=== PATIENT | female | born 1990 | race African-American/Black ===

== ENCOUNTER 2017-09-23 19:34 | Outpatient (CLI) | payer MEDICAID ==
[2017-09-23 20:07] LABS: APPEARANCE,URINE CLEAR; BILIRUBIN,URINE NEGATIVE (NEGATIVE); GLUCOSE, URINE NEGATIVE (NEGATIVE); KETONES,URINE NEGATIVE (NEGATIVE); LEUKOCYTE ESTERASE,URINE TRACE (NEGATIVE); NITRITE,URINE NEGATIVE (NEGATIVE); PROTEIN,URINE NEGATIVE (NEGATIVE); URINE SPECIFIC GRAVITY 1.005; UROBILINOGEN,URINE NEGATIVE mg/dL (<2.0)
[2017-09-23 20:20] LABS: URINE METHADONE SCREEN NEGATIVE; URINE OPIATES LOW NEGATIVE; URINE PHENCYCLIDINE SCREEN NEGATIVE
[2017-09-23 20:37] LABS: URINE BARBITURATES SCREEN UNCONFIRMED POSITIVE
--- NOTE | 2017-09-23 20:55 | L&D Progress Notes ---
PROGRESS NOTES Datetime Report Generated by CPN: 09/23/2017 20:55 PROGRESS NOTE Impression Other: Lower abdominal cramping Procedures- Other: Vaginal exam Plan Other: Anticipate discharge Vital Signs : Reviewed; Within Normal Limits Comment: 27yo @ 26.2 presents with complaints of burning with urination x 2 days and lower abdominal cramping. Pt denies regular contractions, rectal pressure or mucoid vaginal discharge. Pt reports good fm, no vb and no lof. Pts is complicated by postive Iva antibodies. Pt is being monitored for this. Pt was rather uncomfortable when swab was placed in her vagina. VAGINAL EXAM Dilatation: closed Effacement: thick Station: high Contractions: Occaisional MEMBRANES Membranes: Intact FETUS A FHR - Baseline: 140s Monitoring: External US Variability: Moderate 6-25bpm Decelerations: None FHR Comments: Appropriate for 26wks gestation SIGNATURE SIGNATURE: [id number] Signature: with User ID: [email or web address]
== END 2017-09-23 21:29 | disposition home or self-care (01) ==
LOC: LC 19:34
PROVIDERS: ATTEND Obstetrics & Gynecology
PROC: 4A1HXCZ Monitoring of Products of Conception, Cardiac Rate, External Approach (ICD-10-PCS; principal; 2017-09-23)
DX: O47.02 False labor before 37 completed weeks of gestation, second trimester (principal); Z3A.26 26 weeks gestation of pregnancy
CPT/HCPCS: 80307; 81001; 87086; 87210

== ENCOUNTER 2017-11-24 10:40 | Outpatient (CLI) | payer MEDICAID ==
--- NOTE | 2017-11-24 11:20 | Non Stress Test Report ---
Non Stress Test Datetime Report Generated by CPN: 11/24/2017 11:19 DEMOGRAPHIC EGA NST: 35.1 INDICATION Indication for Study: Ordered by Provider Indication for Study (NST) Other: Repeat NST for MONITORING Monitor Explained: Monitor Explained; Test Explained; Patient Verbalized Understanding Time on Monitor: 11/24/2017 10:47 Time off Monitor: 11/24/2017 11:12 NST Duration: 25 NST INTERVENTIONS NST Interventions: PO Hydration Physician Notified NST: Dr. Johnny BABY A: [id number] BABY A Movement : Present Contraction Frequency : none FHR Baseline : 145 Accelerations : 15X15 Decelerations : None Variability : Moderate 6-25bpm NST Review: Meets Criteria for Reactive NST NST Review and Verified By : Chele Mann RN NST Results: Reactive NST REPORT Report Trigger: Send Report
== END 2017-11-24 11:35 | disposition home or self-care (01) ==
LOC: LC 10:40
PROVIDERS: ATTEND Obstetrics & Gynecology
PROC: 4A1HXCZ Monitoring of Products of Conception, Cardiac Rate, External Approach (ICD-10-PCS; principal; 2017-11-24)
DX: Z36.89 Encounter for other specified antenatal screening (principal); Z3A.35 35 weeks gestation of pregnancy
CPT/HCPCS: 59025

== ENCOUNTER 2017-12-07 19:20 | Inpatient (IN) | payer MEDICAID ==
[2017-12-07] MEDS ORDERED: DINOPROSTONE 10 MG VAGINAL INSERT.SR PV PRN (20:56)
[2017-12-07] MEDS ORDERED: RINGERS SOLUTION,LACTATED 300 ML IV ONE (20:56)
[2017-12-07] MEDS ORDERED: MAG HYDROX/AL HYDROX/SIMETH SUSP 30 ML UDCUP PO ONE (21:01)
[2017-12-07] MEDS ORDERED: DINOPROSTONE 10 MG VAGINAL INSERT.SR ONE (21:04)
[2017-12-07] MEDS ORDERED: MAG HYDROX/AL HYDROX/SIMETH SUSP 30 ML UDCUP ONE (21:04)
[2017-12-07 21:12] LABS: APPEARANCE,URINE SLIGHTLY-CLOUDY; BILIRUBIN,URINE NEGATIVE (NEGATIVE); COLOR,URINE YELLOW; GLUCOSE, URINE NEGATIVE (NEGATIVE); KETONES,URINE NEGATIVE (NEGATIVE); LEUKOCYTE ESTERASE,URINE LARGE (NEGATIVE); NITRITE,URINE NEGATIVE (NEGATIVE); PROTEIN,URINE NEGATIVE (NEGATIVE); URINE SPECIFIC GRAVITY 1.003; UROBILINOGEN,URINE NEGATIVE mg/dL (<2.0)
[2017-12-07] MEDS: RINGERS SOLUTION,LACTATED 1,000 ML IV PRN (21:17)
[2017-12-07 21:19] LABS: ABSOLUTE EOSINOPHILS # (AUTO) 0.1 10^3/uL (0.0-0.6); ABSOLUTE LYMPHOCYTES (AUTO) 2.1 10^3/uL (0.5-4.7); ABSOLUTE MONOCYTES (AUTO) 0.7 10^3/uL (0.1-1.4); ABSOLUTE NEUT (AUTO) 5.2 10^3/uL (1.7-8.2); BASOPHILS % (AUTO) 0.3 % (0-2); EOSINOPHILS % (AUTO) 1.5 % (0-6); HEMATOCRIT 33.1 % (36.0-47.0); HEMOGLOBIN 11.3 g/dL (12.0-15.5); LYMPHOCYTES % (AUTO) 25.9 % (13-45); MEAN CORPUSCULAR VOLUME 88 fl (80-97); MONOCYTES % (AUTO) 8.6 % (3-13); PLATELET COUNT 124 10^3/uL (150-450); RED BLOOD COUNT 3.75 10^6/uL (3.72-5.28); RED CELL DISTRIBUTION WIDTH 13.7 % (11.5-14.0); SEGMENTED NEUTROPHILS % (AUTO) 63.7 % (42-78); TOTAL CELLS COUNTED % (AUTO) 100 %; WHITE BLOOD COUNT 8.2 10^3/uL (4.0-10.5)
[2017-12-07 21:31] LABS: URINE AMPHETAMINES SCREEN NEGATIVE; URINE BARBITURATES SCREEN NEGATIVE; URINE BENZODIAZEPINES SCREEN NEGATIVE; URINE COCAINE SCREEN NEGATIVE; URINE MARIJUANA (THC) SCREEN NEGATIVE; URINE METHADONE SCREEN NEGATIVE; URINE PHENCYCLIDINE SCREEN NEGATIVE
[2017-12-08] MEDS ORDERED: PENICILLIN G POTASSIUM 5,000,000 UNIT in DEXTROSE 5%-WATER 100 ML IV ONE (06:32)
[2017-12-08] MEDS ORDERED: NALBUPHINE HCL INJ 10 MG/1 ML AMPULE INJ ONE ×2 (06:56→17:59)
[2017-12-08] MEDS ORDERED: NALBUPHINE HCL INJ 10 MG/1 ML AMPULE ONE ×2 (07:02→18:05)
[2017-12-08] MEDS ORDERED: MISOPROSTOL 0.1 MG TABLET PV ONE (10:25)
[2017-12-08] MEDS ORDERED: MISOPROSTOL 0.1 MG TABLET ONE ×2 (10:30→15:02)
[2017-12-08] MEDS ORDERED: PENICILLIN G POTASSIUM 2,500,000 UNIT in DEXTROSE 5%-WATER 50 ML IV SCH (10:32)
--- NOTE | 2017-12-08 17:55 | L&D Progress Notes ---
PROGRESS NOTES Datetime Report Generated by CPN: 12/08/2017 17:55 PROGRESS NOTE Impression: Normal Progression of Labor; Reassuring Heart Rate Procedures: Sterile Vag Exam Plan: Continue Present Management; Antibiotic Therapy Informed Consent Obtained: Vaginal Delivery Informed Consent Obtained: Vaginal Delivery; Induction of Labor; Risks, Benefits and Alternatives Discussed Vital Signs : Reviewed Comment: feeling more uncomfortable, would like something IV for pain GBS +, start pcn Nubain and phenegran VAGINAL EXAM Dilatation: 3 Dilatation: 0 Effacement: 80 Effacement: 25 Station: -2 Station: -3 Contractions: 2-5 Contractions: irreg MEMBRANES Membranes: Intact Membranes: Intact FETUS A FHR - Baseline: 145 Monitoring: External US Accelerations: 15X15 Decelerations: None FHR Category: Category I FHR Comments: had some variables, has been reactive since Estimated Weight (gm): 2621 Presentation: Vertex SIGNATURE SIGNATURE: [id number] SIGNATURE: [id number];[id number] Assignment: April Turner MD Signature: with User ID: [email or web address] : with User ID: [email or web address]
[2017-12-08] MEDS ORDERED: PROMETHAZINE HCL INJ 25 MG/1 ML VIAL IV ONE (17:58)
[2017-12-08] MEDS ORDERED: PROMETHAZINE HCL INJ 25 MG/1 ML VIAL ONE (18:05)
[2017-12-08] MEDS ORDERED: PENICILLIN G-K 5 MILLION UNIT VIAL ONE ×2 (18:06→21:22)
[2017-12-08] MEDS: RINGERS SOLUTION,LACTATED 1,000 ML IV PRN (18:19)
[2017-12-08] MEDS ORDERED: LIDOCAINE 1% INJ-PF (10 MG/ML) 30 ML SDV ONE (18:37)
[2017-12-08] MEDS ORDERED: MISOPROSTOL 0.2 MG TABLET ONE (18:37)
[2017-12-08] MEDS ORDERED: OXYTOCIN/NORMAL SALINE 0 UNIT/0 ML RTUINJ ONE (18:38)
[2017-12-08] MEDS ORDERED: OXYTOCIN/NORMAL SALINE 20 UNIT/1,000 ML RTUINJ ONE (20:45)
[2017-12-08] MEDS ORDERED: OXYTOCIN/NORMAL SALINE 20 UNIT/1,000 ML RTUINJ IV PRN (20:46)
[2017-12-08] MEDS ORDERED: BUPIVACAINE HCL 0.25 % INJ/PF (2.5 MG/1 ML) 30 ML VIAL ONE (21:49)
[2017-12-08] MEDS ORDERED: EPHEDRINE SULFATE INJ 50 MG/1 ML AMPULE ONE (21:49)
[2017-12-08] MEDS ORDERED: FENTANYL/BUPIVACAINE/NS/PF 200 MCG/100 ML RTUINJ EPI ONE (21:49)
[2017-12-09] MEDS ORDERED: ACETAMINOPHEN WITH CODEINE #3 TABLET PO PRN (01:51)
[2017-12-09] MEDS ORDERED: MAGNESIUM HYDROXIDE SUSP 30 ML UDCUP PO PRN (01:51)
[2017-12-09] MEDS ORDERED: PROMETHAZINE HCL INJ 25 MG/1 ML VIAL IV PRN (01:51)
[2017-12-09] MEDS ORDERED: PROMETHAZINE HCL 25 MG TABLET PO PRN (01:51)
[2017-12-09] MEDS ORDERED: ZOLPIDEM TARTRATE 5 MG TABLET PO PRN (01:51)
[2017-12-09] MEDS ORDERED: PSEUDOEPHEDRINE HCL 30 MG TABLET PO PRN (01:51)
[2017-12-09] MEDS ORDERED: NA PHOS,M-B/NA PHOS,DI-BA (ADULT) 133 ML ENEMA PR PRN (01:51)
[2017-12-09] MEDS ORDERED: MEASLES,MUMPS&RUBELLA VACC/PF 0.5 ML VIAL SUBCUT PRN (01:51)
[2017-12-09] MEDS ORDERED: DIPH/PERTUSS(ACELL)/TETANUS VAC/PF 0.5 ML SYR (>=10YO) IM PRN (01:51)
[2017-12-09] MEDS ORDERED: OXYTOCIN/NORMAL SALINE 20 UNIT/1,000 ML RTUINJ IV PRN (01:51)
[2017-12-09] MEDS ORDERED: GLYCERIN/WITCH HAZEL LEAF 1 EACH MED..PAD TP PRN (01:51)
[2017-12-09] MEDS ORDERED: DIPHENHYDRAMINE HCL 25 MG CAPSULE PO PRN (01:51)
[2017-12-09] MEDS ORDERED: PROMETHAZINE HCL 25 MG SUPP.RECT PR PRN (01:51)
[2017-12-09] MEDS ORDERED: ACETAMINOPHEN 650 MG SUPP.RECT PR PRN (01:51)
[2017-12-09] MEDS ORDERED: DIBUCAINE 1% OINTMENT 28 GM TP PRN (01:51)
[2017-12-09] MEDS ORDERED: BENZOCAINE/MENTHOL AEROSOL SPRAY 56 ML TOP PRN (01:51)
[2017-12-09] MEDS ORDERED: IBUPROFEN 800 MG TABLET ONE (02:14)
--- NOTE | 2017-12-09 04:24 | Admission Physical ---
Datetime Report Generated by CPN: 12/09/2017 04:23 CURRENT ADMISSION Chief Complaint: Scheduled Induction of Labor Indication for Induction: Other Indication for Induction: Term, Intrauterine ; No Active Labor; Intact Membranes; Induction of Labor Indication for Induction- Other: Libby Antibody Admit Plan: Admit to Unit; Initiate Labor Induction Protocol ALLERGIES Medication Allergies: No Medication Allergies: No Known Allergies (12/07/2017) Medication Allergies: No Known Allergies (10/27/2015) Latex: No Latex Allergies Food Allergies: denies Environmental Allergies: denies OBSTETRICAL HISTORY EDC: 12/28/2017 00:00 : 4 Para: 1 Term: 1 : 0 SAB: 2 IAB: 0 Ectopic: 0 Livin Cesareans: 0 VBACs: 0 Multiple Births: 1 Gestational Diabetes: Yes Rh Sensitization: No Incompetent Cervix: No KHURRAM: No Infertility: No ART Treatment: No Uterine Anomaly: No IUGR: No Hx Previous C/S: No Macrosomia: No Hx Loss/Stillborn: No PIH: No Hx : No Placenta Previa/Abruption: No Depression/PP Depression: Yes PTL/PROM: No Post Hemorrhage: No Current Procedures: Ultrasound Obstetrical History Comments: G1 - Twins 2010, GDM G2 - SAB 2015 G3 - SAB 2016 G4 - current SEE RECORDS Alcohol: No Marijuana : No Cocaine: No Other Illicit Drugs: No Cigarettes: Former Smoker. [id number] MEDICAL HISTORY Diabetes: Yes Diabetes Type: Gestational Diabetes Blood Transfusion: No Pulmonary Disease (Asthma, TB): No Breast Disease: No Hypertension: No Police Stenographer Surgery: No Heart Disease: No Hosp/Surgery: Yes Autoimmune Disorder: No Anesthetic Complications: No Kidney Disease: No Abnormal Pap Smear: No Neuro/Epilepsy: No Psychiatric Disorders: No Other Medical Diseases: No Hepatitis/Liver Disease: No Significant Family History: No Varicosities/Phlebitis: No Trauma/Violence : No Thyroid Dysfunction: No Medical History Comments: childbirth x 1, positive libby body antibody, anemia INFECTIOUS HISTORY Gonorrhea: No Genital Herpes: No Chlamydia: Yes Tuberculosis: No Syphilis: No Hepatitis: No HIV/AIDS Exposure: No Rash or Viral Illness: No HPV: No Infectious History Comments: chlamydia 2014 and 2016 PHYSICAL EXAM General: Normal HEENT: Normal Neurologic: Normal Thyroid: Deferred Heart: Normal Lungs: Normal Breast: Deferred Back: Normal Abdomen: Normal Genitourinary Exam: Normal Extremities: Normal DTRs: Normal Pelvic Type: Adequate Vital Signs: Reviewed VAGINAL EXAM Dilatation: 3 Dilatation: 0 Dilatation: closed Effacement: 80 Effacement: 25 Effacement: thick Station: -2 Station: -3 Station: high Contraction Comments: 2-5 Contraction Comments: irreg Contraction Comments: Occaisional MEMBRANES Membranes: Intact Membranes: Intact Membranes: Intact FETUS A EGA: 37.0 Monitoring: External US FHR- Baseline: 125 Variability: Moderate 6-25bpm Accelerations: 15X15 Decelerations: None FHR Category: Category I Estimated Weight (gm): 2621 Presentation: Vertex Admit Comment: 27yo at 37+0ega on presentation presents for IOL due to [place] antibody. EFW 11/28 at [facility] was 5#12oz. H/o Term Twin delivery (5#6oz and 5#4oz). [facility] transfer at 20wks. H/o depression - counseling pp. Will need to start zoloft pp. H/o chlamydia during with good VICENTA. Pelvis proce to 5#6oz and adequate for KIARA. Reassuring FWB. Plan to begin IOL with cervidil. GBS pos - Prophy with PCN. PLANS FOR LABOR AND DELIVERY Labor and Delivery: None Pain Management: Epidural Feeding Preference: Breast Benefit of Breast Feed Discussed: Yes Circumcision: N/A INFORMED CONSENT Informed Consent Obtained: Vaginal Delivery Informed Consent Obtained: Vaginal Delivery; Induction of Labor; Risks, Benefits and Alternatives Discussed Signature: with User ID: [email or web address]
[2017-12-09] MEDS: PENICILLIN G-K 5 MILLION UNIT VIAL IV SCH ×3 (07:51→13:34)
[2017-12-09] MEDS: IBUPROFEN 800 MG TABLET PO SCH ×3 (07:51→21:59)
[2017-12-09] MEDS: ACETAMINOPHEN WITH CODEINE #3 TABLET PO PRN (08:49)
[2017-12-09] MEDS: DOCUSATE SODIUM 100 MG CAPSULE PO SCH ×2 (10:12→18:18)
[2017-12-09] MEDS: PRENATAL VITAMIN W DHA CAPSULE PO SCH (10:12)
[2017-12-09] MEDS: SENNOSIDES/DOCUSATE 8.6-50 MG 1 EACH TABLET PO SCH (10:12)
[2017-12-09] MEDS: FAMOTIDINE 20 MG TABLET PO SCH ×2 (10:13→21:59)
[2017-12-09] MEDS: SERTRALINE HCL 50 MG TABLET PO SCH (10:13)
[2017-12-09] MEDS: FERROUS SULFATE 325 MG TABLET PO SCH ×2 (10:13→18:18)
--- NOTE | 2017-12-09 11:07 | PDOC PROGRESS REPORT ---
Subjective-OB Progress Note for:: 12/09/17 Subjective: pp day #0 states lochia is stable, pain well controlled, voiding without difficulty, doing well. Physical Exam (OB) Vital Signs: Temp Pulse Resp BP Pulse Ox 98.2 F 95 17 125/69 98 12/09/17 08:43 12/09/17 08:43 12/09/17 08:43 12/09/17 08:43 12/09/17 08:43 Intake & Output 12/08/17 12/09/17 12/10/17 06:59 06:59 06:59 Weight 85.593 kg - PIH/Pre-Eclampsia Clonus: Negative Headache: Absent Epigastric Pain: No Visual Changes: No - Lochia Lochia Amount: Scant < 10 ml Lochia Color: Rubra/Red - Abdomen Description: Round Fundal Description: Firm Fundal Height: u/u - u/2 Objective-Diagnostic Laboratory: 12/07/17 21:00 Assessment and Plan(PN) - Assessment and Plan (1) (spontaneous vaginal delivery) Is this a current diagnosis for this admission?: Yes Plan: routine pp care (2) 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
[2017-12-10] MEDS: ACETAMINOPHEN WITH CODEINE #3 TABLET PO PRN ×3 (00:08→21:02)
[2017-12-10] MEDS: IBUPROFEN 800 MG TABLET PO SCH ×3 (05:19→21:03)
[2017-12-10 08:36] LABS: HEMATOCRIT 29.3 % (36.0-47.0); HEMOGLOBIN 9.9 g/dL (12.0-15.5); MEAN CORPUSCULAR HEMOGLOBIN 30.2 pg (27.0-33.4); MEAN CORPUSCULAR HGB CONC 33.7 g/dL (32.0-36.0); MEAN CORPUSCULAR VOLUME 90 fl (80-97); RED BLOOD COUNT 3.27 10^6/uL (3.72-5.28); RED CELL DISTRIBUTION WIDTH 13.8 % (11.5-14.0); WHITE BLOOD COUNT 7.8 10^3/uL (4.0-10.5)
[2017-12-10 09:15] LABS: PLATELET COUNT 97 10^3/uL (150-450)
[2017-12-10] MEDS: FERROUS SULFATE 325 MG TABLET PO SCH ×2 (09:25→17:19)
[2017-12-10] MEDS: DOCUSATE SODIUM 100 MG CAPSULE PO SCH ×2 (09:25→17:19)
[2017-12-10] MEDS: FAMOTIDINE 20 MG TABLET PO SCH ×2 (09:25→21:03)
[2017-12-10] MEDS: PRENATAL VITAMIN W DHA CAPSULE PO SCH (09:25)
[2017-12-10] MEDS: SENNOSIDES/DOCUSATE 8.6-50 MG 1 EACH TABLET PO SCH (09:26)
[2017-12-10] MEDS: SERTRALINE HCL 50 MG TABLET PO SCH (09:31)
--- NOTE | 2017-12-10 10:22 | PDOC PROGRESS REPORT ---
Subjective-OB Progress Note for:: 12/10/17 Subjective: pp day #2 desires d/c home if baby can be discharged, states lochia is stable, pain well controlled, voiding without difficulty, denies concerns. Physical Exam (OB) Vital Signs: Temp Pulse Resp BP Pulse Ox 98.0 F 78 17 119/68 97 12/10/17 08:03 12/10/17 08:03 12/10/17 08:03 12/10/17 08:03 12/10/17 08:03 Intake & Output 12/09/17 12/10/17 12/11/17 06:59 06:59 06:59 Intake Total 912 Balance 912 - PIH/Pre-Eclampsia DTR's: 1 + Clonus: Negative Headache: Absent Epigastric Pain: No Visual Changes: No - Lochia Lochia Amount: Scant < 10 ml Lochia Color: Rubra/Red - Abdomen Description: Tender, Soft, Round Hernia Present: No Fundal Description: Firm, Midline Fundal Height: u/u - u/2 Objective-Diagnostic Laboratory: 12/10/17 07:50 12/10/17 07:50 WBC 7.8 RBC 3.27 L Hgb 9.9 L Hct 29.3 L MCV 90 MCH 30.2 MCHC 33.7 RDW 13.8 Plt Count 97 L Assessment and Plan(PN) - Assessment and Plan (1) (spontaneous vaginal delivery) Is this a current diagnosis for this admission?: Yes Plan: routine pp care may d/c home if baby is d/c may cancel d/c if not (2) [place] isoimmunization during in third trimester Qualifiers: Fetus number: single or unspecified fetus Qualified Code(s): O36.1930 - Maternal care for other isoimmunization, third trimester, not applicable or unspecified Is this a current diagnosis for this admission?: Yes Plan: routine care (3) Acute blood clot in neck veins Is this a current diagnosis for this admission?: Yes Plan: ferrous sulfate increase dietary iron - Time Spent with Patient Time with patient: Less than 15 minutes Critical Time spent with patient: Less than 15 minutes Smoking Education Provided: Over 3 minutes Medications reviewed and adjusted accordingly: Yes - Disposition Anticipated Discharge: Home Within: within 24 hours
--- NOTE | 2017-12-10 10:24 | PDOC DISCHARGE SUMMARY ---
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 Is this a current diagnosis for this admission?: Yes (3) Acute blood clot in neck veins Is this a current diagnosis for this admission?: Yes Discharge Data - Discharge Medication Prescriptions: Docusate Sodium [Colace 100 mg Capsule] 100 mg PO BID #60 capsule Ferrous Sulfate [Feosol 325 mg Tablet] 325 mg PO BID #60 tablet Ibuprofen [Motrin 800 mg Tablet] 800 mg PO Q8 #60 tablet Home Medications: Ferrous Sulfate [Iron] 325 mg PO DAILY 11/24/17 Vit,Calc76/Iron/Folic [Prenatabs Rx Tablet] 1 each PO DAILY 11/24/17 Sertraline HCl [Zoloft] 25 mg PO BID 12/07/17 Docusate Sodium [Colace 100 mg Capsule] 100 mg PO BID #60 capsule 12/10/17 Ferrous Sulfate [Feosol 325 mg Tablet] 325 mg PO BID #60 tablet 12/10/17 Ibuprofen [Motrin 800 mg Tablet] 800 mg PO Q8 #60 tablet 12/10/17 Reason(s) for Admission: Induction of Labor, Other - + libby antibody Procedures: NST Intrapartum Procedure(s): Spontaneous Vaginal Delivery - Archie Data Baby 1 Female Home with Mother: Yes Complications: No - Diagnosis Test Laboratory: Temp Pulse Resp BP Pulse Ox 98.0 F 78 17 119/68 97 12/10/17 08:03 12/10/17 08:03 12/10/17 08:03 12/10/17 08:03 12/10/17 08:03 12/07/17 12/07/17 12/10/17 19:50 21:00 07:50 RBC 3.75 3.27 L Hgb 11.3 L 9.9 L Hct 33.1 L 29.3 L Urine Opiates Screen NEGATIVE - Discharge information/Instructions Discharge Activity: Activity As Tolerated, Pelvic Rest, No tub bath Discharge Diet: Regular Disposition: HOME, SELF-CARE Follow up with: [facility] in: 4, Weeks
--- NOTE | 2017-12-10 23:13 | Delivery Summary ---
Del Sum A-C Datetime Report Generated by CPN: 12/10/2017 23:12 DELIVERY PERSONNEL DELIVERY PERSONNEL: [id number] Delivery Doctor:: April Turner MD Labor and Delivery Nurse:: Jumana Ordaz, field service technician poultry Nurse:: Erma Englishl, RN Ecommerce Marketing Manager/WORKFORCE DEVELOPMENT PROGRAM DIRECTOR: Janeen Green, ST MATERNAL INFORMATION Delivery Anesthesia: Epidural Medications After Delivery: Pitocin Drip 20 Units/1000ml NSS Maternal Complications: None LABOR SUMMARY EDC: 12/28/2017 00:00 No. Babies in Womb: 1 Attempted: No Labor Anesthesia: Epidural LABOR INFORMATION Reason for Induction- Other: Iva Antibody Onset of Labor: 12/08/2017 22:47 Complete Dilatation: 12/09/2017 01:29 Cervical Ripening Agents: Cervidil; Cytotec @ Cervical Ripening Agents: Cytotec @ [facility] Cervical Ripening Agents: Cervidil Oxytocin: Induction Group B Beta Strep: positive Antibiotics # of Doses: 2202 Antibiotics Time of Last Dose: 2 Name of Antibiotic Given: Penicillin Steroids Given: None Reason Steroids Not Administered: Not Applicable MEMBRANES Membranes Rupture Method: Artificial Rupture of Membranes: 12/08/2017 22:47 Length of Rupture (hr): 2.83 Amniotic Fluid Color: Clear Amniotic Fluid Amount: Large Amniotic Fluid Odor: Normal STAGES OF LABOR Stage 1 hr: 2 Stage 1 min: 42 Stage 2 hr: 0 Stage 2 min: 8 Stage 3 hr: 0 Stage 3 min: 3 Total Time in Labor hr: 2 Total Time in Labor min: 53 VAGINAL DELIVERY Episiotomy: None Laceration #1: None Laceration Extension #1: N/A Laceration Repair: Not Applicable Sponge Count Correct: N/A Sharps Count Correct: N/A CSECTION DELIVERY Primary Indication: N/A Secondary Indication: N/A CSection Incidence: N/A Labor: N/A Elective: N/A CSection Incision: N/A BABY A INFORMATION Delivery Date/Time: 12/09/2017 01:37 Method of Delivery: Vaginal Method of Delivery: Vaginal Method of Delivery: Vaginal Born in Route : No : N/A Forceps: N/A Vacuum Extraction: N/A Shoulder Dystocia : No PRESENTATION/POSITION BABY A Presentation: Cephalic Cephalic Presentation: Vertex Vertex Position: Left Occipital Anterior Breech Presentation: N/A PLACENTA INFORMATION BABY A Placenta Delivery Time : 12/09/2017 01:40 Placenta Method of Delivery: Spontaneous Placenta Method of Delivery: Spontaneous Placenta Status: Delivered SCORES BABY A Heart Rate 1 min: >100 bpm Resp Effort 1 min: Slow, Irregular Reflex Irritability 1 min: Cough or Sneeze or Pulls Away Muscle Tone 1 min: Some Flexion of Extremities Color 1 min: Blue/Pale Resuscitation Effort 1 min: Tactile Stimulation; Oxygen SCORE 1 MIN: 6 Heart Rate 5 min: >100 bpm Resp Effort 5 min: Good Cry Reflex Irritability 5 min: Cough or Sneeze or Pulls Away Muscle Tone 5 min: Active Motion Color 5 min: Body [place], Extremities Blue SCORE 5 MIN: 9 INFORMATION BABY A Gestational Age at Delivery: 37.2 Gestational Status: Early Term- 37- 38.6 Weeks Infant Outcome : Liveborn Condition : Stable Sex: Female Infant Sex: Female IDENTIFICATION BABY A Verification Date/Time: 12/09/2017 01:52 ID Band Number: [id number] Mother's Name Verified: Yes Infant RN Verifying Infant: S. Lattibeaudeir, RN _ N. Foster, RN WEIGHT/LENGTH BABY A Infant Birthweight (gm): 2660 Weight (lb): 5 Weight (oz): 14 Infant Length (in): 19.50 Length (cm): 49.53 CORD INFORMATION BABY A No. Cord Vessels: 3 Nuchal Cord : N/A Cord Blood Taken: Yes-For Storage (Mom's Blood type +) Infant Suction: Mouth; Nose ASSESSMENT BABY A Skin to Skin: Yes Skin to Skin Time (min): 60 BABY B INFORMATION : N/A SIGNATURES Signature: with User ID: [email or web address]
--- NOTE | 2017-12-10 23:14 | Delivery Summary ---
Del Sum A-C Datetime Report Generated by CPN: 12/10/2017 23:14 DELIVERY PERSONNEL DELIVERY PERSONNEL: [id number] Delivery Doctor:: April Turner MD Labor and Delivery Nurse:: Jumana Ordaz, wax pattern repairer Nurse:: Erma Englishl, RN Gas Maker Helper/EVENT COORDINATOR MARKETING AND SALES: Janeen Green, ST MATERNAL INFORMATION Delivery Anesthesia: Epidural Medications After Delivery: Pitocin Drip 20 Units/1000ml NSS Maternal Complications: None LABOR SUMMARY EDC: 12/28/2017 00:00 No. Babies in Womb: 1 Attempted: No Labor Anesthesia: Epidural LABOR INFORMATION Reason for Induction- Other: Iva Antibody Onset of Labor: 12/08/2017 22:47 Complete Dilatation: 12/09/2017 01:29 Cervical Ripening Agents: Cervidil; Cytotec @ Cervical Ripening Agents: Cytotec @ 25[facility] Cervical Ripening Agents: Cervidil Oxytocin: Induction Group B Beta Strep: positive Antibiotics # of Doses: 2202 Antibiotics Time of Last Dose: 2 Name of Antibiotic Given: Penicillin Steroids Given: None Reason Steroids Not Administered: Not Applicable MEMBRANES Membranes Rupture Method: Artificial Rupture of Membranes: 12/08/2017 22:47 Length of Rupture (hr): 2.83 Amniotic Fluid Color: Clear Amniotic Fluid Amount: Large Amniotic Fluid Odor: Normal STAGES OF LABOR Stage 1 hr: 2 Stage 1 min: 42 Stage 2 hr: 0 Stage 2 min: 8 Stage 3 hr: 0 Stage 3 min: 3 Total Time in Labor hr: 2 Total Time in Labor min: 53 VAGINAL DELIVERY Episiotomy: None Laceration #1: None Laceration Extension #1: N/A Laceration Repair: Not Applicable Sponge Count Correct: N/A Sharps Count Correct: N/A CSECTION DELIVERY Primary Indication: N/A Secondary Indication: N/A CSection Incidence: N/A Labor: N/A Elective: N/A CSection Incision: N/A BABY A INFORMATION Delivery Date/Time: 12/09/2017 01:37 Method of Delivery: Vaginal Method of Delivery: Vaginal Method of Delivery: Vaginal Born in Route : No : N/A Forceps: N/A Vacuum Extraction: N/A Shoulder Dystocia : No PRESENTATION/POSITION BABY A Presentation: Cephalic Cephalic Presentation: Vertex Vertex Position: Left Occipital Anterior Breech Presentation: N/A PLACENTA INFORMATION BABY A Placenta Delivery Time : 12/09/2017 01:40 Placenta Method of Delivery: Spontaneous Placenta Method of Delivery: Spontaneous Placenta Status: Delivered SCORES BABY A Heart Rate 1 min: >100 bpm Resp Effort 1 min: Slow, Irregular Reflex Irritability 1 min: Cough or Sneeze or Pulls Away Muscle Tone 1 min: Some Flexion of Extremities Color 1 min: Blue/Pale Resuscitation Effort 1 min: Tactile Stimulation; Oxygen SCORE 1 MIN: 6 Heart Rate 5 min: >100 bpm Resp Effort 5 min: Good Cry Reflex Irritability 5 min: Cough or Sneeze or Pulls Away Muscle Tone 5 min: Active Motion Color 5 min: Body [place], Extremities Blue SCORE 5 MIN: 9 INFORMATION BABY A Gestational Age at Delivery: 37.2 Gestational Status: Early Term- 37- 38.6 Weeks Infant Outcome : Liveborn Condition : Stable Sex: Female Infant Sex: Female IDENTIFICATION BABY A Verification Date/Time: 12/09/2017 01:52 ID Band Number: [id number] Mother's Name Verified: Yes Infant RN Verifying Infant: S. Lattibeaudeir, RN _ N. Foster, RN WEIGHT/LENGTH BABY A Infant Birthweight (gm): 2660 Weight (lb): 5 Weight (oz): 14 Infant Length (in): 19.50 Length (cm): 49.53 CORD INFORMATION BABY A No. Cord Vessels: 3 Nuchal Cord : N/A Cord Blood Taken: Yes-For Storage (Mom's Blood type +) Infant Suction: Mouth; Nose ASSESSMENT BABY A Skin to Skin: Yes Skin to Skin Time (min): 60 BABY B INFORMATION : N/A SIGNATURES Signature: with User ID: [email or web address]
[2017-12-11] MEDS: ACETAMINOPHEN WITH CODEINE #3 TABLET PO PRN ×2 (02:26→06:31)
[2017-12-11] MEDS: IBUPROFEN 800 MG TABLET PO SCH (05:02)
[2017-12-11 08:02] VITALS: BP 124/64
--- NOTE | 2017-12-11 08:54 | PDOC PROGRESS REPORT ---
Subjective-OB Progress Note for:: 12/11/17 Subjective: pp day # 2 rash, had before she delivered, feels like its from drinking too much orange juice Physical Exam (OB) Vital Signs: Temp Pulse Resp BP Pulse Ox 97.9 F 73 18 124/64 99 12/11/17 07:26 12/11/17 07:26 12/11/17 07:26 12/11/17 07:26 12/11/17 07:26 Intake & Output 12/10/17 12/11/17 12/12/17 06:59 06:59 06:59 Intake Total 912 1050 Balance 912 1050 - Lochia Lochia Amount: Scant < 10 ml Lochia Color: Rubra/Red - Abdomen Description: Soft, Round Hernia Present: No Fundal Description: Firm, Midline Fundal Height: u/u - u/2 - Skin Skin Temperature: Warm Skin Moisture: Dry Skin Color: Normal Skin Irregularity: Rash Objective-Diagnostic Laboratory: 12/10/17 07:50 12/10/17 07:50 WBC 7.8 RBC 3.27 L Hgb 9.9 L Hct 29.3 L MCV 90 MCH 30.2 MCHC 33.7 RDW 13.8 Plt Count 97 L Assessment and Plan(PN) - Assessment and Plan (1) (spontaneous vaginal delivery) Is this a current diagnosis for this admission?: Yes Plan: hydrocortisone for rash caladryl lotion (2) 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
[2017-12-11] MEDS: PRENATAL VITAMIN W DHA CAPSULE PO SCH (09:48)
[2017-12-11] MEDS: FAMOTIDINE 20 MG TABLET PO SCH (09:48)
[2017-12-11] MEDS: FERROUS SULFATE 325 MG TABLET PO SCH (09:48)
[2017-12-11] MEDS: SENNOSIDES/DOCUSATE 8.6-50 MG 1 EACH TABLET PO SCH (09:48)
[2017-12-11] MEDS: DOCUSATE SODIUM 100 MG CAPSULE PO SCH (09:48)
[2017-12-11] MEDS: SERTRALINE HCL 50 MG TABLET PO SCH (10:07)
== END 2017-12-11 10:58 | disposition home or self-care (01) | DRG 774 ==
LOC: LR 19:20 → 2S 12-09 04:22
PROVIDERS: ADMIT Obstetrics & Gynecology; ATTEND Obstetrics & Gynecology
PROC: 4A1HXCZ Monitoring of Products of Conception, Cardiac Rate, External Approach (ICD-10-PCS; 2017-12-07)
PROC: 3E033VJ Introduction of Other Hormone into Peripheral Vein, Percutaneous Approach (ICD-10-PCS; 2017-12-08)
PROC: 10907ZC Drainage of Amniotic Fluid, Therapeutic from Products of Conception, Via Natural or Artificial Opening (ICD-10-PCS; 2017-12-08)
PROC: 10E0XZZ Delivery of Products of Conception, External Approach (ICD-10-PCS; principal; 2017-12-09)
DX: O36.1930 Maternal care for other isoimmunization, third trimester, not applicable or unspecified (principal); O88.82 Other embolism in childbirth; O99.824 Streptococcus B carrier state complicating childbirth; O24.429 Gestational diabetes mellitus in childbirth, unspecified control; O99.02 Anemia complicating childbirth; D64.9 Anemia, unspecified; Z3A.37 37 weeks gestation of pregnancy; Z87.891 Personal history of nicotine dependence; Z37.0 Single live birth
CPT/HCPCS: 36415; 59025; 80307; 81001; 85025; 85027; 86592; 86850; 86870; 86900; 86901; 86902; 94760; J2300; J2540; J2550; J2590; J3490

== ENCOUNTER → 2019-11-06 | Outpatient (CLI) | payer MEDICAID ==
--- NOTE | 2019-11-06 10:47 | WOMENS IMAGING REPORT ---
EXAM DESCRIPTION: U/S BREAST UNILAT LIMITED COMPLETED DATE/TIME: 11/06/2019 10:32 am REASON FOR STUDY: N64.4 MASTODYNIA N64.4 MASTODYNIA COMPARISON: None. TECHNIQUE: Real-time and static grayscale imaging performed of the right breast targeted to the area of clinical/mammographic concern. Selected color Doppler images recorded. LIMITATIONS: None. FINDINGS: MASS: No mass identified. Dense glandular tissue. OTHER: No other significant finding. IMPRESSION: No suspicious findings detected by ultrasound. BIRAD: 1 Negative. RECOMMENDATION: RECOMMENDED FOLLOW-UP: Follow-up as clinically indicated. COMMENT: The [employer] (ACR) has developed recommendations for screening MRI of the breasts in certain patient populations, to be used in conjunction with mammography. Breast MRI s urveillance may be appropriate for women with more than 20% lifetime risk of developing breast cancer as determined by genetic testing, significant family history of the disease, or history of mantle r adiation for Hodgkins Disease. ACR Practice Guidelines 2008. TECHNICAL DOCUMENTATION: JOB ID: [id number] [employer]- All Rights Reserved Reading location - IP/workstation name: [email or web address]
== END ==
LOC: WI 09:57
PROVIDERS: ATTEND Nurse Practitioner Family
DX: N64.4 Mastodynia (principal)
CPT/HCPCS: 76642

== ENCOUNTER 2019-11-13 21:22 | Emergency (ER) | payer MEDICAID ==
--- NOTE | 2019-11-13 21:54 | ER Document Report ---
ED Medical Screen (RME) - General Chief Complaint: Suicidal Ideation Stated Complaint: SI Time Seen by Provider: 11/13/19 21:48 Primary Care Provider: YORDY REYES FNP [Primary Care Provider] - Follow up as needed Mode of Arrival: Ambulatory Information source: Patient Notes: 29-year-old female patient presenting to the emergency department with mobile crisis for suicidal ideation with a plan. Patient does not want to open up to me in triage, mobile crisis states that she had a plan of how she was going to harm herself and she has the means to do it. They would not elaborate in triage and what this plan was. Patient does have an extensive mental health history, she states that she takes Celexa for depression and anxiety. Patient is calm, cooperative, answering all questions appropriately. I have greeted and performed a rapid initial assessment of this patient. A comprehensive ED assessment and evaluation of the patient, analysis of test results and completion of the medical decision making process will be conducted by additional ED providers. I have specifically instructed the patient or family members with the patient to immediately return to any nursing staff should anything change in the patient's condition or with their chief complaint. TRAVEL OUTSIDE OF THE [place] IN LAST 30 DAYS: No - Related Data Allergies/Adverse Reactions: No Known Allergies Allergy (Verified 11/13/19 21:43) Home Medications: ANTI-DEPRESSANTS. SLEEPING PILLS Past Medical History - Social History Frequency of alcohol use: Heavy Drug Abuse: Prescription drugs - Immunizations Immunizations up to date: Yes Hx Diphtheria, Pertussis, Tetanus Vaccination: No Physical Exam - Vital signs Vitals: Temp Pulse Resp BP Pulse Ox 98.9 F 90 20 126/76 H 96 11/13/19 21:35 11/13/19 21:35 11/13/19 21:35 11/13/19 21:35 11/13/19 21:35 Course - Vital Signs Vital signs: Temp Pulse Resp BP Pulse Ox 98.9 F 90 20 126/76 H 96 11/13/19 21:35 11/13/19 21:35 11/13/19 21:35 11/13/19 21:35 11/13/19 21:35 Doctor's Discharge - Discharge Referrals: YORDY REYES FNP [Primary Care Provider] - Follow up as needed
[2019-11-13 22:38] LABS: ABSOLUTE BASOPHILS # (AUTO) 0.1 10^3/uL (0.0-0.2); ABSOLUTE EOSINOPHILS # (AUTO) 0.1 10^3/uL (0.0-0.6); ABSOLUTE LYMPHOCYTES (AUTO) 3.7 10^3/uL (0.5-4.7); ABSOLUTE MONOCYTES (AUTO) 0.4 10^3/uL (0.1-1.4); ABSOLUTE NEUT (AUTO) 4.2 10^3/uL (1.7-8.2); BASOPHILS % (AUTO) 0.7 % (0-2); EOSINOPHILS % (AUTO) 1.2 % (0-6); HEMATOCRIT 41.2 % (36.0-47.0); LYMPHOCYTES % (AUTO) 44.3 % (13-45); MEAN CORPUSCULAR HEMOGLOBIN 30.9 pg (27.0-33.4); MEAN CORPUSCULAR HGB CONC 33.9 g/dL (32.0-36.0); MEAN CORPUSCULAR VOLUME 91 fl (80-97); MONOCYTES % (AUTO) 4.5 % (3-13); PLATELET COUNT 231 10^3/uL (150-450); RED BLOOD COUNT 4.52 10^6/uL (3.72-5.28); RED CELL DISTRIBUTION WIDTH 13.6 % (11.5-14.0); SEGMENTED NEUTROPHILS % (AUTO) 49.3 % (42-78); TOTAL CELLS COUNTED % (AUTO) 100 %; WHITE BLOOD COUNT 8.4 10^3/uL (4.0-10.5)
--- NOTE | 2019-11-13 22:47 | ER Document Report ---
ED Psych Disorder / Suicide - General Chief Complaint: Suicidal Ideation Stated Complaint: SI Time Seen by Provider: 11/13/19 21:48 Primary Care Provider: YORDY REYES FNP [Primary Care Provider] - Follow up as needed Mode of Arrival: Ambulatory Information source: Patient Notes: 29-year-old female patient states she has suicidal ideation and a plan of overdosing on trazodone. Patient reports that she feels as though her family is not supportive of her. She lives with her grandmother and has 3 children that also live in the same residence. Patient reports that her family seems to care more for her children than for herself. She gave an example that she had told the grandmother she had an appointment with them medical doctor today and when she asked her grandmother to take her to her appointment there was a misunderstanding at the time of her appointment and patient did not get to see her doctor today. Patient states she is on trazodone and Celexa which she receives from the mobile crisis unit. Patient called mobile crisis today because she had become depressed and felt suicidal. Once she met with the mobile crisis team at her residence she was brought here to the ED due to her suicidal ideation. Patient denies any hallucinations. Patient reports she does drink alcohol and has only had 1-1/2 beers today. Patient denies that she is an alcoholic. Patient denies any other illicit use of substances including crack cocaine marijuana vaping. Patient does report she smokes tobacco. Patient reports that she has suicidal ideations for a long time has never acted or attempted any suicide attempt. Patient denies any other medical problems. Patient is unemployed and is on disability TRAVEL OUTSIDE OF THE [place] IN LAST 30 DAYS: No - HPI Patient complains to provider of: Suicidal ideation Onset: Just prior to arrival Onset was: Gradual Quality of pain: Other - Complains of a headache Severity: Moderate Pain Level: 3 Suicide Risk Factors: Depressed - Patient complains of low back pain. She was going to the doctor today and her grandmother either misunderstood or did not participating in giving her the ride transportation that she needed to get to her doctor's appointment. Seems like from then on see decided that she was depressed and crying a lot and call crisis line., Lack of social support Situational problems related to: Other - Patient reports she has generalized anxiety disorder severe depression and borderline personality disorder Suicide Attempt Method: Other - Patient reports Overdose of: Other - Reported that she has not taken any medications today nor has she attempted suicide gestures or ask. Associated symptoms: Depressed Similar symptoms previously: Yes - Reports she has chronic suicidal ideation. Recently seen / treated by doctor: No - Related Data Allergies/Adverse Reactions: No Known Allergies Allergy (Verified 11/13/19 21:43) Home Medications: ANTI-DEPRESSANTS. SLEEPING PILLS Past Medical History - General Information source: Patient - Social History Smoking Status: Current Every Day Smoker Frequency of alcohol use: Heavy Drug Abuse: Prescription drugs Lives with: Family Family History: Reviewed & Not Pertinent Patient has suicidal ideation: Yes Patient has homicidal ideation: No - Past Medical History Cardiac Medical History: Reports: None Pulmonary Medical History: Reports: None EENT Medical History: Reports: None Neurological Medical History: Reports: None Endocrine Medical History: Reports: None Renal/ Medical History: Reports: None Malignancy Medical History: Reports: None GI Medical History: Reports: None Musculoskeletal Medical History: Reports None Skin Medical History: Reports None Psychiatric Medical History: Reports: Hx Borderline Personality Disorder, Hx Depression, Other - Generalized anxiety disorder. Social alcohol drinker. Infectious Medical History: Reports: None Surgical Hx: Negative - Immunizations Immunizations up to date: Yes Hx Diphtheria, Pertussis, Tetanus Vaccination: No Review of Systems - Review of Systems Constitutional: No symptoms reported EENT: No symptoms reported Cardiovascular: No symptoms reported Respiratory: No symptoms reported Gastrointestinal: No symptoms reported Genitourinary: No symptoms reported Female Genitourinary: No symptoms reported Musculoskeletal: No symptoms reported, Back pain Skin: No symptoms reported Hematologic/Lymphatic: No symptoms reported Neurological/Psychological: Depression Physical Exam - Vital signs Vitals: Temp Pulse BP Pulse Ox 98.9 F 73 126/76 H 85 L 11/13/19 21:30 11/13/19 21:30 11/13/19 21:30 11/13/19 21:30 Interpretation: Normal - General General appearance: Appears well, Alert - HEENT Head: Normocephalic, Atraumatic Eyes: Normal Pupils: PERRL - Respiratory Respiratory status: No respiratory distress Chest status: Nontender Breath sounds: Normal Chest palpation: Normal - Cardiovascular Rhythm: Regular Heart sounds: Normal auscultation Murmur: No - Abdominal Inspection: Normal Distension: No distension Bowel sounds: Normal Tenderness: Nontender Organomegaly: No organomegaly - Back Back: Normal, Nontender - Extremities General upper extremity: Normal inspection, Nontender, Normal color, Normal ROM, Normal temperature General lower extremity: Normal inspection, Nontender, Normal color, Normal ROM, Normal temperature, Normal weight bearing. No: Noel's sign - Neurological Neuro grossly intact: Yes Cognition: Normal Orientation: AAOx4 Katharine Coma Scale Eye Opening: Spontaneous Meridian Coma Scale Verbal: Oriented Meridian Coma Scale Motor: Obeys Commands Katharine Coma Scale Total: 15 Speech: Normal Motor strength normal: LUE, RUE, LLE, RLE Sensory: Normal - Psychological Associated symptoms: Normal affect, Normal mood - Skin Skin Temperature: Warm Skin Moisture: Dry Skin Color: Normal Course - Re-evaluation Re-evalutation: 11/14/19 05:53 Been resting comfortably while in the department. Patient is on involuntary commitment papers because of her behavior stating that she was going to overdose on tablets. Patient is medically cleared to be evaluated by mental health and dispositioned by them regarding inpatient versus outpatient care. 11/14/19 07:06 Patient is medically cleared for psychiatric referral to either inpatient or outpatient therapy. - Vital Signs Vital signs: Temp Pulse Resp BP Pulse Ox 98.4 F 67 14 114/67 98 11/14/19 06:29 11/14/19 06:29 11/14/19 06:29 11/14/19 06:29 11/14/19 06:29 - Laboratory Result Diagrams: 11/13/19 22:18 11/13/19 22:18 Laboratory results interpreted by me: 11/13/19 11/13/19 22:18 22:18 Total Protein 8.8 H Urine Blood SMALL H Salicylates < 1.0 L Acetaminophen < 10 L - EKG Interpretation by Me When compared to previous EKG there are: No significant change Additional EKG results interpreted by me: 11/14/19 06:02 Twelve-lead EKG done at 2202 shows a normal sinus rhythm with no acute changes. Discharge - Discharge Clinical Impression: Suicidal ideation, Depression Condition: Good Disposition: PSYCH HOSP/UNIT Referrals: YORDY REYES FNP [Primary Care Provider] - Follow up as needed
[2019-11-13 22:53] LABS: APPEARANCE,URINE CLEAR; BILIRUBIN,URINE NEGATIVE (NEGATIVE); COLOR,URINE YELLOW; GLUCOSE, URINE NEGATIVE (NEGATIVE); KETONES,URINE NEGATIVE (NEGATIVE); LEUKOCYTE ESTERASE,URINE NEGATIVE (NEGATIVE); NITRITE,URINE NEGATIVE (NEGATIVE); PROTEIN,URINE NEGATIVE (NEGATIVE); URINE SPECIFIC GRAVITY 1.012; UROBILINOGEN,URINE NEGATIVE mg/dL (<2.0)
[2019-11-13 22:55] LABS: ALBUMIN 4.7 g/dL (3.5-5.0); ALCOHOL 34 mg/dL (NONE DETECTED); ALKALINE PHOSPHATASE 57 U/L (38-126); ANION GAP 12 (5-19); ASPARTATE AMINO TRANSFERASE 22 U/L (14-36); BILIRUBIN,DIRECT 0.3 mg/dL (0.0-0.4); BILIRUBIN,TOTAL 0.4 mg/dL (0.2-1.3); BLOOD UREA NITROGEN 11 mg/dL (7-20); CALCIUM 9.5 mg/dL (8.4-10.2); CARBON DIOXIDE 26 mmol/L (22-30); CHLORIDE 103 mmol/L (98-107); GLUCOSE 83 mg/dL (75-110); POTASSIUM 4.5 mmol/L (3.6-5.0); TOTAL PROTEIN 8.8 g/dL (6.3-8.2)
[2019-11-13 22:56] LABS: ACETAMINOPHEN < 10 ug/mL (10-30); SALICYLATE < 1.0 mg/dL (2.0-20.0)
[2019-11-13 23:12] LABS: URINE AMPHETAMINES SCREEN NEGATIVE; URINE BARBITURATES SCREEN NEGATIVE; URINE BENZODIAZEPINES SCREEN NEGATIVE; URINE COCAINE SCREEN NEGATIVE; URINE MARIJUANA (THC) SCREEN NEGATIVE; URINE METHADONE SCREEN NEGATIVE; URINE PHENCYCLIDINE SCREEN NEGATIVE
[2019-11-13] MEDS ORDERED: ACETAMINOPHEN 325 MG TABLET PO ONE (23:12)
[2019-11-13] MEDS ORDERED: ONDANSETRON 4 MG TAB.RAPDIS PO ONE (23:13)
[2019-11-14] MEDS ORDERED: ACETAMINOPHEN 325 MG TABLET PO ONE (03:56)
--- NOTE | 2019-11-14 05:36 | EKG REPORT ---
SEVERITY:- NORMAL ECG - SINUS RHYTHM : Confirmed by: Mony Wagoner MD 14-Nov-2019 05:35:36
[2019-11-14] MEDS ORDERED: CITALOPRAM HYDROBROMIDE 20 MG TABLET PO ONE (06:15)
--- NOTE | 2019-11-14 06:25 | RADIOLOGY REPORT (SQ) ---
Chest single view on 11/14/2019 at 6:08 AM CLINICAL INDICATION: Medical clearance for psychiatry COMPARISON: None FINDINGS: The lungs are clear. Cardiac, hilar and mediastinal contours are within normal limits. Pulmonary vascularity is within normal limits. No bony abnormality is noted. IMPRESSION: No active disease.
--- NOTE | 2019-11-14 12:46 | ER Document Report ---
Doctor's Note Notes: 11/14/19 12:46 Chart reviewed patient rounded on. PHYSICAL EXAMINATION: GENERAL: Well-appearing and in no acute distress HEAD: Atraumatic, normocephalic. EYES: Pupils equal round and reactive to light, extraocular movements intact, sclera anicteric, conjunctiva are normal. ENT: nares patent, oropharynx clear without exudates. Moist mucous membranes. NECK: Normal range of motion, supple without lymphadenopathy LUNGS: CTAB and equal. No wheezes rales or rhonchi. HEART: Regular rate and rhythm without murmurs ABDOMEN: Soft, no tenderness. No guarding, no rebound EXTREMITIES: Normal range of motion, no pitting edema. No cyanosis. NEUROLOGICAL: Cranial nerves grossly intact. Normal sensory/motor exams. PSYCH: Normal mood, normal affect. SKIN: Warm, Dry, normal turgor, no rashes or lesions noted 11/14/19 15:45 Behavioral health Vijay advising Celexa 20 mg p.o. daily with BuSpar 5 mg p.o. twice daily 11/14/19 18:10 Patient questioning BuSpar medication. Patient was instructed on BuSpar. Reasons for BuSpar. She verbalized understanding patient reports that she just wants to go home. She denies suicidal ideations at this time. Reports she feels better.
[2019-11-14] MEDS ORDERED: NICOTINE 21 MG/24 HR PATCH.TD24 TD ONE (16:00)
--- NOTE | 2019-11-14 16:58 | PSYCHOLOGICAL NOTE ---
Psych Note - Psych Note Date seen by psych provider: 11/14/19 Time seen by psych provider: 08:20 Psych Note: Reason For Consult: Suicidal ideation She reports that she felt like she was going to hurt herself so called mobile crisis. She states that she has been suffering from depression since August because of financial stress. She reports that she has had to live back home with her parents and lost her vehicle and her independence. She states that yesterday nothing really happened it just seemed like it was the "straw that broke the camel's back." She reports that normally she can take a long hot shower and sleep however yesterday she was unable to do this. She confirms she had a plan of overdosing on her trazodone. She states that she had planned to go to hotel because she did not want her children seeing her however when her friend never came to pick her up she called mobile crisis. Patient states that she is very close with her sister and brother however she did not reach out to them like she normally did because she felt like they had a life with her own and she did not want to bother them. She reports difficulty in dealing with revealed family secrets from before she was born. Patient is alert and orientated to person, place, time and circumstance. Mood is dysphoric with tearful affect. Patient confirms suicidal ideation with plan however denies intent and confirms she reached out for assistance. Patient denies homicidal ideation. Delusions are absent behaviors congruent with an intact reality based presentation I organized only with a box. Eye contact is well-maintained. Conversational speech is within normal rate, tone bus. Intellectual abilities appear to be within the average range. Attention and concentration are good. Insight, judgment, impulse control is fair. Medication recommendations per [facility]'s contracted psychiatrist Dr. Pete JAMES are as follows Celexa 20 mg daily BuSpar 5 mg twice daily discontinue home medication of trazodone Impression\\plan: Patient is recommended for IVC petition for overnight mental health observation. Patient reports that she does not want to she is just "tired." Patient continues to present dysphoric with tearful affect this morning. She confirms suicidal ideation with a plan of overdosing on her trazodone. Patient made plans to go to hotel so her children would not find her and was waiting for her ride. When her ride did not show she reached out to her outpatient mental health provider GUALBERTO; [facility] mobile crisis responded and brought patient to [facility]. Dr. Galarza was consulted to care management of this patient; attending physicians in agreement with recommendations and disposition.
[2019-11-14] MEDS: BUSPIRONE HCL 10 MG TABLET PO SCH (17:29)
[2019-11-14] MEDS: CITALOPRAM HYDROBROMIDE 20 MG TABLET PO SCH ×2 (17:30→17:41)
[2019-11-14] MEDS ORDERED: DIPHENHYDRAMINE HCL 50 MG CAPSULE PO ONE (21:51)
[2019-11-15 05:21] VITALS: BP 118/74
--- NOTE | 2019-11-15 08:46 | ER Document Report ---
Doctor's Note Notes: 11/15/19 08:44 9:00 last night patient was complaining of insomnia and requesting her trazodone which was DC'd yesterday. I explained to the patient that I cannot get her trazodone but I did write her an order for Benadryl.
[2019-11-15] MEDS: CITALOPRAM HYDROBROMIDE 20 MG TABLET PO SCH (09:04)
[2019-11-15] MEDS: BUSPIRONE HCL 10 MG TABLET PO SCH (09:04)
--- NOTE | 2019-11-15 10:54 | PSYCHOLOGICAL NOTE ---
Psych Note - Psych Note Date seen by psych provider: 11/15/19 Time seen by psych provider: 09:15 Psych Note: Reason For Consult: Suicidal ideation Check in conducted with patient: Upon entering patient's room patient smiles and greets clinician. She reports she is feeling much better this morning. She confirms that after speaking with the medical provider she understood that she had to stay for monitoring. She thanked behavioral health team specifically attending physician yesterday for helping her. She reports she plans on going home and speaking with her grandmother and aunt about her concerns and identifies that because of significant difficulties from the past it has caused difficulty in everybody helping each other; "they want to help but they do not know what to do to help so I think I just need to lay it out there and specifically say what I need for help." Behavioral health team contacted patient's grandmother see mental health Medication recommendations per [facility]'s contracted psychiatrist Dr. Pete JAMES are as follows Celexa 20 mg daily BuSpar 5 mg every morning and 10mg every evening at bedtime discontinue home medication of trazodone Impression\\plan: Patient is recommended for rescind of IVC and is cleared from acute psychiatric services. Patient's presentation has significantly improved with euthymic mood and congruent affect smiling engaging with clinician. Patient denies thoughts of wanting to harm herself and confirms she is feeling much better today. Patient identifies strong family as a support network and identifies her grandmother as a point of contact. Patient's grandmother confirms she will be part of patient's plan of care i.e. access no medications and weapons and follow through with mental with recommendations. Patient is recommended to follow-up with outpatient mental health services for both medi cation management and therapeutic services. Dr. Galarza was consulted to care management of this patient; attending physicians in agreement with recommendations and disposition.
--- NOTE | 2019-11-15 11:15 | ER Document Report ---
Doctor's Note Notes: 11/15/19 11:14 patient nontoxic, well-appearing. Patient without any complaints this morning. Patient is to be discharged per psychiatric recommendations with prescriptions for BuSpar and Celexa. Her grandmother will now be in charge of her medications. Patient was provided with outpatient resources. Mobile crisis is to olive picker patient. Patient voices understanding and agrees with plan of care.
== END 2019-11-15 11:28 | disposition home or self-care (01) ==
LOC: ER 21:22
DX: R45.851 Suicidal ideations (principal); F33.2 Major depressive disorder, recurrent severe without psychotic features; F41.1 Generalized anxiety disorder; G47.00 Insomnia, unspecified; Z79.899 Other long term (current) drug therapy; R51 Headache; M54.5 Low back pain; F17.200 Nicotine dependence, unspecified, uncomplicated; F19.10 Other psychoactive substance abuse, uncomplicated
CPT/HCPCS: 93005; 99285; 36415; 80307 ×4; 85025; 81025; 80053; 81001; 93010; J3490 ×8; S0119